=== PATIENT | female | born 1955 | race American Indian/Alaskan Native ===

== ENCOUNTER 2018-04-06 11:41 | Day surgery (SDC) | payer MEDICAID ==
[2018-04-06 12:50] VITALS: BMI 44.9
[2018-04-06] MEDS ORDERED: LIDOCAINE 2% 10ML 20 MG/ML VIAL IJ ONE (13:22)
[2018-04-06 13:36] VITALS: RESP 18; TEMP 97.4
--- NOTE | 2018-04-06 14:03 | CP.SDSHP ---
Same Day Surgery H & P - History Proposed Procedure: FNA right and left thyroid nodules Pre-Op Diagnosis: right and left thyroid nodules - Allergies Allergies: Allergies Penicillins Allergy (Intermediate, Verified 04/06/18 12:50) SWELLING - Physical Exam Vital Signs: Vital Signs 04/06/18 04/06/18 12:21 13:34 Temperature 98.3 F 97.4 F L Pulse Rate 77 73 Respiratory 22 18 Rate Blood Pressure 124/70 124/66 O2 Sat by Pulse 96 Oximetry - Impression Impression: Pt with multiple left and right thyroid nodules. Plan FNA right and left thyroid nodules. Pt. Evaluated Today:Candidate for Anesthesia & Procedure: No - Date & Time Date: 04/06/18 Time: 13:45 Short Stay Discharge - Short Stay Discharge Admitting Diagnosis/Reason for Visit: D440, D442,E042, E1140 Disposition: HOME/ ROUTINE Referrals: Kate Bourgeois MD [Primary Care Provider] -
--- NOTE | 2018-04-06 14:05 | PCM.SURG1 ---
Surgeon's Initial Post Op Note - Surgeon's Notes Surgeon: Bon Shetty MD Heeler Machine: NONE Type of Anesthesia: Local Pre-Operative Diagnosis: right and left thyroid nodules Operative Findings: 1.4 cm right and 1.6 cm left thyroid nodules Post-Operative Diagnosis: right and left thyroid nodules Operation Performed: FNA right and left thyroid nodules Specimen/Specimens Removed: 25 g x 5 passes per nodule. Estimated Blood Loss: EBL {In ML}: 1 Blood Products Given: N/A Drains Used: No Drains Post-Op Condition: Good Date of Surgery/Procedure: 04/06/18 Time of Surgery/Procedure: 14:00
[2018-04-06 14:24] VITALS: BP 134/79; PULSE 71; O2SAT 97
--- NOTE | 2018-04-07 10:00 | US ---
PROCEDURE: Date of Procedure: 04/06/2018 PROCEDURE: 1. Ultrasound guided FNA of left thyroid nodule, CPT 60979 2. Ultrasound guided FNA of RIGHT thyroid nodule, 3. Ultrasound guidance for FNA, 34504 Medications: 3cc 1% Lidocaine HISTORY: Enlarged thyroid nodules. TECHNIQUE: Following informed consent and procedure time-out, a limited ultrasound patient's neck confirmed the presence of a 1.8 cm solid left thyroid nodule. Also present is a complex, predominantly solid right thyroid nodule measuring1.5 cm. After the patient's neck was prepped and draped in the usual sterile fashion, the skin was anesthetized with 1% lidocaine. Ultrasound-guided fine needle aspiration was then performed of the dominant left thyroid nodule. A total of 5 passes were made into the nodule with 25 gauge needle under ultrasound guidance. The FNA specimen was sent for routine pathology. Ultrasound guided FNA was then performed of the dominant right thyroid nodule. Again 5 passes were made into the nodule with 25 gauge needle. The FNA specimen was sent for routine pathology. Post biopsy ultrasound showed no hematoma. IMPRESSION: Ultrasound-guided FNA of the dominant right and left thyroid nodules.
== END 2018-04-06 15:30 | disposition home or self-care (01) ==
LOC: H.OPSURG 11:41
PROVIDERS: ATTEND Internal Medicine
DX: E04.2 Nontoxic multinodular goiter (principal); Z88.0 Allergy status to penicillin